=== PATIENT | male | born 1990 | race Caucasian/White ===

== ENCOUNTER 2020-10-20 23:54 | Emergency (ER) | payer OTHER, BC ==
[2020-10-20] MEDS ORDERED: Sodium Chloride 0.9% 10 ML Syringe FLUSH PRN (23:55)
[2020-10-20] MEDS ORDERED: Sodium Chloride 0.9% 2.5 ML Syringe FLUSH PRN (23:55)
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
[2020-10-21] MEDS ORDERED: Morphine 4 MG/ML Syringe IVPUSH ONE ×3 (00:11→02:48)
[2020-10-21] MEDS ORDERED: Iopamidol 755 MG/ML 500 ML Multipack Bottle IVPUSH STA (00:39)
[2020-10-21 00:40] LABS: BLOOD UREA NITROGEN,BUN 18 mg/dL (7.0-18.0); CARBON DIOXIDE,CO2 23.5 mmol/L (21.0-32.0); CHLORIDE,CL 105 mmol/L (98-107); GLUCOSE RANDOM 115 mg/dL (74-106); LIPASE 90 U/L (73-393); POTASSIUM,K 3.4 mmol/L (3.5-5.1); SODIUM,NA 143 mmol/L (136-148)
[2020-10-21] MEDS ORDERED: Ondansetron 4 MG/2 ML SDV IVPUSH ONE (01:19)
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
== END 2020-10-21 02:30 | disposition home or self-care (01) ==
LOC: MW.ED 23:54
DX: S22.42XA Multiple fractures of ribs, left side, initial encounter for closed fracture (principal); V29.9XXA Motorcycle rider (driver) (passenger) injured in unspecified traffic accident, initial encounter; Y93.55 Activity, bike riding
CPT/HCPCS: 36415; 70450; 71260; 72125; 73560; 74177; 80053; 80307; 83690; 83735; 84443; 84484; 85025; 93005; 96374; 96375; 96376; 99285; J2270; J2405; Q9967; 72128-26; 72131-26; 93010; 99283